=== PATIENT | female | born 1995 ===

== ENCOUNTER 2016-07-24 22:20 | Emergency (ER) | payer OTHER ==
[2016-07-24 22:28] VITALS: BMI 30.2
[2016-07-24 22:43] VITALS: RESP 16; TEMP 98.4; O2SAT 100
[2016-07-25 00:56] LABS: ADD MANUAL DIFF? NO
[2016-07-25 01:05] LABS: BASO # 0.04 K/mm3 (0.0-2.0); BASO % 0.3 % (0.0-3.0); EOS # 0.3 (0.0-0.7); EOS % 2.6 % (1.5-5.0); GRAN # 7.38 (1.4-6.5); GRAN % 59.3 % (50.0-68.0); HEMATOCRIT 38.2 % (36.0-48.0); LYMPH % 31.9 % (22.0-35.0); MEAN CORPUSCULAR HEMOGLOBIN 29.5 pg (25.0-35.0); MEAN CORPUSCULAR HGB CONC 35.1 g/dl (31.0-37.0); MEAN PLATELET VOLUME 10.8 fl (7.0-11.0); MONO # 0.7 (0.1-0.6); MONO % 5.9 % (1.0-6.0); PLATELET COUNT 240 10^3/uL (120.0-450.0); RED CELL DISTRIBUTION WIDTH 12.8 % (11.5-14.5); WHITE BLOOD COUNT 12.5 10^3/ul (4.5-11.0)
[2016-07-25 01:12] LABS: ALB/GLOB RATIO 1.3 (1.1-1.8); ALKALINE PHOSPHATASE 77 U/L (38-133); ALT/SGPT 28 U/L (7-56); AST/SGOT 22 U/L (15-39); BILIRUBIN,TOTAL 0.4 mg/dL (0.2-1.3); BLOOD UREA NITROGEN 15 mg/dL (7-21); CALCIUM 9.5 mg/dL (8.4-10.5); CARBON DIOXIDE 26 mmol/L (21-33); CHLORIDE 103 mmol/L (98-107); GFR AFRICAN-AMERICAN > 60; GLUCOSE,RANDOM 86 mg/dL (70-110); POTASSIUM 3.7 mmol/L (3.6-5.0); SODIUM 138 mmol/L (132-148); TOTAL PROTEIN 7.5 g/dL (5.8-8.3)
[2016-07-25] MEDS ORDERED: Iohexol 350 MG/100 ML VIAL ONE (01:19)
--- NOTE | 2016-07-25 01:35 | ED PDOC ---
Arrival/HPI - General Chief Complaint: Medical Clearance Time Seen by Provider: 07/24/16 22:35 Historian: Patient - History of Present Illness Narrative History of Present Illness (Text): 07/25/16 01:30 20-year-old female presents today with left sided neck pain. pt states she woke up 4 days ago with left sided neck pain that has been progressively worsening.no medications have been taken for pain. no fever/chills. pt states she had a sore throat for about a week that has since resolved. pt describes sharp pain to the left side of the neck with limited rom of neck due to pain. pt states she feels a tender lump on the left side of the neck. no other complaints. Past Medical History - Provider Review Nursing Documentation Reviewed: Yes - Travel History Have you recently traveled outside [place] w/in the past 3 mons?: No - Infectious Disease Hx of Infectious Diseases: None - Tetanus Immunization Tetanus Immunization: Unknown - Cardiac Hx Cardiac Disorders: No - Pulmonary Hx Asthma: Yes - Neurological Hx Neurological Disorder: No - HEENT Hx HEENT Disorder: No - Renal Hx Renal Disorder: No - Endocrine/Metabolic Hx Endocrine Disorders: No - Hematological/Oncological Hx Anemia: Yes - Integumentary Hx Dermatological Disorder: No - Musculoskeletal/Rheumatological Hx Musculoskeletal Disorders: No - Gastrointestinal Hx Gastrointestinal Disorders: No - Genitourinary/Gynecological Other/Comment: L Breast tumor - Psychiatric Hx Psychophysiologic Disorder: No Hx Substance Use: No - Surgical History Hx Tonsillectomy: Yes Other/Comment: TUMOR REMOVED L BREAST - Anesthesia Hx Anesthesia: Yes Hx Anesthesia Reactions: No Hx Malignant Hyperthermia: No Family/Social History - Physician Review Nursing Documentation Reviewed: Yes Family/Social History: Unknown Family HX Smoking Status: Heavy Smoker > 10 Cigarettes Daily Hx Alcohol Use: No Hx Substance Use: No Allergies/Home Meds Allergies/Adverse Reactions: Allergies azithromycin [From Zithromax Z-Zbigniew] Allergy (Verified 06/07/16 12:35) SHORTNESS OF BREATH Review of Systems - Review of Systems Constitutional: absent: Fatigue, Fevers ENT: Sore Throat (sore throat last week. not currently.) Respiratory: absent: SOB, Cough Cardiovascular: absent: Chest Pain, Palpitations Gastrointestinal: absent: Abdominal Pain, Constipation, Diarrhea, Nausea, Vomiting Genitourinary Female: absent: Dysuria, Frequency, Hematuria Musculoskeletal: Neck Pain. absent: Arthralgias, Back Pain Skin: absent: Rash, Pruritis Neurological: absent: Headache, Dizziness Psychiatric: absent: Anxiety, Depression Physical Exam Vital Signs Reviewed: Yes Vital Signs Temp Pulse Resp BP Pulse Ox 07/24/16 22:38 98.4 F 77 16 133/77 100 Temperature: Afebrile Blood Pressure: Normal Pulse: Regular Respiratory Rate: Normal Appearance: Positive for: Well-Appearing, Non-Toxic, Uncomfortable Pain Distress: Mild Mental Status: Positive for: Alert and Oriented X 3 - Systems Exam Head: Present: Atraumatic Ears: Present: Normal, NORMAL TM Mouth: Present: Moist Mucous Membranes Pharnyx: Present: Normal. No: ERYTHEMA, EXUDATE, TONSILS ENLARGED, Peritonsilar Swelling, Uvular Deviation, Muffled/Hoarse Voice, Strider, Soft Palate/Uvular Edema Nose (External): Present: Atraumatic Nose (Internal): Present: Normal Inspection Neck: Present: Paraspinal Tenderness (+ left sided paraspinal tenderness and trapezius tenderness), Lymphadenopathy (+ left sided tender nodule noted. no erythema. ), Trachea Midline. No: Normal Range of Motion (head held to the left , inabilty to turn head due to pain), MIDLINE TENDERNESS Respiratory/Chest: Present: Clear to Auscultation, Good Air Exchange. No: Respiratory Distress, Accessory Muscle Use Cardiovascular: Present: Regular Rate and Rhythm, Normal S1, S2. No: Murmurs Abdomen: No: Tenderness, Distention, Rebound, Guarding Back: Present: Normal Inspection Upper Extremity: Present: Normal Inspection Lower Extremity: Present: Normal Inspection Neurological: Present: GCS=15, Speech Normal Skin: Present: Warm, Dry, Normal Color. No: Rashes Psychiatric: Present: Alert, Oriented x 3 Medical Decision Making ED Course and Treatment: 07/25/16 01:33 20-year-old female with left-sided neck pain 4 days. Woke up from sleep with the pain. Sore throat times one week which since has resolved Vitals are stable. Toradol and Flexeril given for pain Patient now able to fully move the neck but is still having pain to tender lymph node. pt concerned about cancer. will check labs and do ct of neck r/o mass cbc; wbc:12.5 cmp: wnl rapid strep; ct soft tissue neck; FINDINGS: Nasopharynx: Unremarkable. Oropharynx: Unremarkable. No significant tonsillar enlargement. No peritonsillar abscess. Hypopharynx: Unremarkable. Larynx: Unremarkable. Normal epiglottis. Trachea: Unremarkable. Retropharyngeal space: Unremarkable. Submandibular/parotid glands: Unremarkable. Glands are normal in size. Thyroid: Unremarkable. No enlarged or calcified nodules. Bones/joints: No acute fracture. Soft tissues: The left sternocleidomastoid muscle itself is enlarged and edematous in appearance and an associated myositis is not excluded. Vasculature: No acute findings. Lymph nodes: Prominent left-sided cervical lymphadenopathy is noted most evident just deep to the sternocleidomastoid. Conglomerate nodes measure up to 2.3 cm in length. There is extensive perinodal stranding, findings suspicious for lymphadenitis. Differential etiology would include bacterial infection such as cat scratch fever, granulomatous disease/scrofula less likely viral infection. Stranding associated with the left-sided cervical lymphadenopathy extends into the parapharyngeal space on the left Lung apices: Unremarkable as visualized. IMPRESSION: 1. Prominent left-sided cervical lymphadenopathy is noted most evident just deep to the sternocleidomastoid. Conglomerate nodes measure up to 2.3 cm in length. There is extensive perinodal stranding, findings suspicious for lymphadenitis. Differential etiology would include bacterial infection such as cat scratch fever, granulomatous disease/scrofula less likely viral infection. 2. The left sternocleidomastoid muscle itself is enlarged and edematous in appearance and an associated myositis is not excluded. 07/25/16 02:14 pt feeling better; vitals stable. will d/c home on augmentin, motrin and flexeril; advised f/u with pmd. advised immediate return if symptoms worsen, persist or if new symptoms develop. advised patient to f/u with ENT specialist. Stressed the importance of making sure that the patient follows up with a primary care physician for resolution of the swollen lymph node Patient verbalizes understanding of discharge instructions and need for immediate followup. all aspects of this case were discussed the attending of record. Impression: Neck pain, lymphadenitis Motrin every 6 hours as needed for pain Flexeril one tablet every 8 hours as needed for muscle spasms: May cause drowsiness Augmentin 1 tablet twice daily 10 days Followup with the ENT specialist within the next 2 days Followup with primary care physician within the next 2 days Return if symptoms worsen persist or if new symptoms develop - Lab Interpretations Lab Results: 07/25/16 00:45 07/25/16 00:45 Lab Results 07/25/16 01:10: Grp A Beta Strep Ag Negative 07/25/16 00:45: WBC 12.5 H D, RBC 4.55, Hgb 13.4, Hct 38.2, MCV 84.0, MCH 29.5, MCHC 35.1, RDW 12.8, Plt Count 240, MPV 10.8, Gran % 59.3, Lymph % (Auto) 31.9, [place] % (Auto) 5.9, Eos % (Auto) 2.6, Baso % (Auto) 0.3, Gran # 7.38 H, Lymph # 4.0 H, Lincoln # 0.7 H, Eos # 0.3, Baso # 0.04, Sodium 138, Potassium 3.7, Chloride 103, Carbon Dioxide 26, Anion Gap 13, BUN 15, Creatinine 0.8, Est GFR ( Amer) > 60, Est GFR (Non-Af Amer) > 60, Random Glucose 86, Calcium 9.5, Total Bilirubin 0.4, AST 22, ALT 28, Alkaline Phosphatase 77, Total Protein 7.5 , Albumin 4.2, Globulin 3.3, Albumin/Globulin Ratio 1.3 - RAD Interpretation Radiology Orders: 07/25/16 00:37 NECK SOFT TISSUE W/CONTRAST [CT] Stat - Medication Orders Current Medication Orders: Discontinued Medications Cyclobenzaprine HCl (Flexeril) 10 mg PO STAT STA Stop: 07/24/16 23:08 Last Admin: 07/24/16 23:28 Dose: 10 MG Famotidine (Pepcid) 20 mg PO STAT STA Stop: 07/25/16 00:38 Last Admin: 07/25/16 00:51 Dose: 20 MG Iohexol (Omnipaque 350 100 Ml) Confirm Administered Dose 350 mg .ROUTE .STK-MED ONE Stop: 07/25/16 01:20 Ketorolac Tromethamine (Toradol) 60 mg IM STAT STA Stop: 07/24/16 23:08 Last Admin: 07/24/16 23:28 Dose: 60 MG IM Administration Charges Document 07/24/16 23:28 YP (Rec: 07/24/16 23:28 YP [id number]) Injection Site MAR Injection Site Right Gluteus Shane Charges for Administration # of IM Administrations 1 Disposition/Present on Arrival - Present on Arrival Any Indicators Present on Arrival: No History of DVT/PE: No History of Uncontrolled Diabetes: No Urinary Catheter: No History of Decub. Ulcer: No History Surgical Site Infection Following: None - Disposition Have Diagnosis and Disposition been Completed?: Yes Diagnosis: Lymphadenitis, Neck pain Disposition: HOME/ ROUTINE Disposition Time: 02:18 Patient Plan: Discharge Condition: GOOD Discharge Instructions (ExitCare): Lymphadenopathy (ED) Additional Instructions: Motrin every 6 hours as needed for pain Flexeril one tablet every 8 hours as needed for muscle spasms: May cause drowsiness Augmentin 1 tablet twice daily 10 days Followup with the ENT specialist within the next 2 days Followup with primary care physician within the next 2 days Return if symptoms worsen persist or if new symptoms develop Prescriptions: Amoxicillin/Clavulanate [Augmentin 875 MG-125 MG] 1 tab PO BID #20 tab Cyclobenzaprine [Cyclobenzaprine HCl] 10 mg PO Q8 #10 tab Ibuprofen [Motrin] 600 mg PO Q6H PRN #20 tab PRN Reason: pain/fever reduction Referrals: Mamadou Bullock DO [Staff Provider] - Follow up with primary Jailyn Doyle MD [Staff Provider] - Follow up with primary Forms: WORK NOTE
[2016-07-25] MEDS ORDERED: Amoxicillin-Clav 875-125 mg Tab PO STA (02:15)
[2016-07-25 02:31] VITALS: BP 107/55; PULSE 87
--- NOTE | 2016-07-25 08:06 | CT ---
PROCEDURE: CT NECK WITH CONTRAST HISTORY: left sided neck pain/swelling COMPARISON: None TECHNIQUE: CT of the neck with intravenous contrast. Coronal and sagittal reformats generated. Intravenous contrast dose: 100 mL Omnipaque 350 Radiation dose: DLP 314.85 mGy-cm This CT exam was performed using one or more of the following dose reduction techniques: Automated exposure control, adjustment of the mA and/or kV according to patient size, and/or use of iterative reconstruction technique. FINDINGS: NASOPHARYNX: Within normal limits. SUPRAHYOID NECK: The oropharynx, oral cavity, parapharyngeal space and retropharyngeal space are grossly normal in appearance. INFRAHYOID NECK: There is no mass or abnormal enhancement in the larynx, hypopharynx, and supraglottic space. Vocal cords intact. MASS: None. GLANDS: Parotid and submandibular glands unremarkable. Normal size thyroid gland, without nodule. LYMPH NODES: There is asymmetric marked enlargement of the left posterior triangle lymph nodes, the largest measures 2.2 x 1.2 cm. There is significant perinodal fat stranding and indistinct margins of the nodes with mild central low attenuation in some of the nodes. There is haziness and stranding of the posterior triangle fat. There is also asymmetric enlargement of the left sternocleidomastoid muscle with indistinct margin and surrounding fat stranding. CERVICAL SPINE: No fracture or focal lesion. VASCULAR STRUCTURES: Unremarkable. OTHER FINDINGS: None. IMPRESSION: Left posterior triangle cervical lymphadenopathy with perinodal inflammatory changes, indistinct florencio margins with probable central cystic changes in some of the loops and reactive enlargement of the left sternocleidomastoid mastoid muscle. The differential considerations include infectious and inflammatory etiology. Clinical correlation and follow-up is advised. A preliminary report was provided by [employer].
== END 2016-07-25 02:32 | disposition home or self-care (01) ==
LOC: ED 22:20
DX: I88.9 Nonspecific lymphadenitis, unspecified (principal); M54.2 Cervicalgia
CPT/HCPCS: 70491; 80053; 85025; 87070; 87430; 96372; 99283; J1885; Q9967

== ENCOUNTER 2017-10-16 10:14 | Emergency (ER) | payer OTHER ==
[2017-10-16 10:31] VITALS: RESP 18; TEMP 98.7; BMI 28.3
[2017-10-16] MEDS ORDERED: Fluticasone Nasal 50 mcg/Spray NS STA (10:42)
--- NOTE | 2017-10-16 10:51 | ED PDOC ---
Arrival/HPI - General Chief Complaint: ENT Problem Time Seen by Provider: 10/16/17 10:35 Historian: Patient - History of Present Illness Narrative History of Present Illness (Text): 10/16/17 10:43 21yo female with pmhx of Asthma who present with complaint nasal congestion, ear fullness, positional dizziness, feeling of having asthma attack. Patient states she always gets nervous when she feels like she is about to get Asthma attack. States she took Nyquil yesterday without relieve. Report subjective fever yesterday. Denies cough, SOB, wheezing, chest pain, diaphoresis, sick contact, travel, any other complaint. Past Medical History - Provider Review Nursing Documentation Reviewed: Yes - Infectious Disease Hx of Infectious Diseases: None - Tetanus Immunization Tetanus Immunization: Unknown - Reproductive Menopause: No - Cardiac Hx Cardiac Disorders: No - Pulmonary Hx Asthma: Yes - Neurological Hx Neurological Disorder: No - HEENT Hx HEENT Disorder: No - Renal Hx Renal Disorder: No - Endocrine/Metabolic Hx Endocrine Disorders: No - Hematological/Oncological Hx Anemia: Yes - Integumentary Hx Dermatological Disorder: No - Musculoskeletal/Rheumatological Hx Musculoskeletal Disorders: No - Gastrointestinal Hx Gastrointestinal Disorders: No - Genitourinary/Gynecological Other/Comment: L Breast tumor - Psychiatric Hx Psychophysiologic Disorder: No Hx Substance Use: No - Surgical History Hx Tonsillectomy: Yes Other/Comment: TUMOR REMOVED L BREAST - Anesthesia Hx Anesthesia: Yes Hx Anesthesia Reactions: No Hx Malignant Hyperthermia: No Family/Social History - Physician Review Nursing Documentation Reviewed: Yes Family/Social History: Unknown Family HX Smoking Status: Heavy Smoker > 10 Cigarettes Daily Hx Alcohol Use: No Hx Substance Use: No Allergies/Home Meds Allergies/Adverse Reactions: Allergies azithromycin [From Zithromax Z-Zbigniew] Allergy (Verified 06/07/16 12:35) SHORTNESS OF BREATH Review of Systems - Physician Review All systems were reviewed & negative as marked: Yes - Review of Systems Constitutional: Normal Eyes: Normal ENT: Sinus Congestion Respiratory: Normal Cardiovascular: Normal Gastrointestinal: Normal Genitourinary Female: Normal Musculoskeletal: Normal Skin: Normal Neurological: Normal Endocrine: Normal Hemo/Lymphatic: Normal Psychiatric: Normal Physical Exam Vital Signs Reviewed: Yes Vital Signs Temp Pulse Resp BP Pulse Ox 10/16/17 12:00 80 18 112/79 99 10/16/17 10:22 98.7 F 81 18 115/80 98 Temperature: Afebrile Blood Pressure: Normal Pulse: Regular Respiratory Rate: Normal Appearance: Positive for: Well-Appearing, Non-Toxic, Comfortable Pain Distress: None Mental Status: Positive for: Alert and Oriented X 3 - Systems Exam Head: Present: Atraumatic, Normocephalic Pupils: Present: PERRL Extroacular Muscles: Present: EOMI Conjunctiva: Present: Normal Ears: Present: Normal, NORMAL TM Mouth: Present: Moist Mucous Membranes Pharnyx: Present: Normal Nose (Internal): Present: Engorged (Worse on the left nare) Neck: Present: Normal Range of Motion Respiratory/Chest: Present: Clear to Auscultation, Good Air Exchange. No: Respiratory Distress, Accessory Muscle Use, Wheezes, Decreased Breath Sounds, Rales, Retracting, Rhonchi, Tachypneic Cardiovascular: Present: Regular Rate and Rhythm, Normal S1, S2. No: Murmurs Abdomen: No: Tenderness, Distention, Peritoneal Signs Back: Present: Normal Inspection Upper Extremity: Present: Normal Inspection. No: Cyanosis, Edema Lower Extremity: Present: Normal Inspection. No: Edema Neurological: Present: GCS=15, CN II-XII Intact, Speech Normal Skin: Present: Warm, Dry, Normal Color. No: Rashes Psychiatric: Present: Alert, Oriented x 3, Normal Insight, Normal Concentration Medical Decision Making ED Course and Treatment: 10/16/17 20:43 Pt was hemodynamically stable and afebrile in ED. She was treated symptomatically with antihistamine and nasal flonase. Advised to drink plenty of fluid and f/u with ehr PMD. - Medication Orders Current Medication Orders: Discontinued Medications Fluticasone Propionate (Flonase) 1 actuation NS STAT STA Stop: 10/16/17 10:43 Last Admin: 10/16/17 11:01 Dose: 1 applic Loratadine (Claritin) 10 mg PO ONCE ONE Stop: 10/16/17 10:43 Last Admin: 10/16/17 11:00 Dose: 10 mg Prednisone (Prednisone Tab) 40 mg PO STAT STA Stop: 10/16/17 10:44 Last Admin: 10/16/17 11:01 Dose: 40 mg Disposition/Present on Arrival - Present on Arrival Any Indicators Present on Arrival: No History of DVT/PE: No History of Uncontrolled Diabetes: No Urinary Catheter: No History of Decub. Ulcer: No History Surgical Site Infection Following: None - Disposition Have Diagnosis and Disposition been Completed?: Yes Diagnosis: Nasal congestion Disposition: HOME/ ROUTINE Disposition Time: 11:35 Patient Plan: Discharge Condition: STABLE Discharge Instructions (ExitCare): Cough, Runny Nose, and the Common Cold Additional Instructions: Follow up with your Doctor/ENT Return to ED for any new symptoms Prescriptions: Loratadine/Pseudoephedrine [Claritin-D 24 Hour Tablet] 1 each PO DAILY #30 tab.er.24h Referrals: [facility] [place] [Outside] - Follow up with primary Forms: [facility] (Macedonian), WORK NOTE
[2017-10-16 12:00] VITALS: BP 112/79; PULSE 80; O2SAT 99
== END 2017-10-16 12:00 | disposition home or self-care (01) ==
LOC: ED 10:14
DX: R09.81 Nasal congestion (principal); J45.909 Unspecified asthma, uncomplicated; F17.210 Nicotine dependence, cigarettes, uncomplicated